=== PATIENT | female | born 1960 | race Caucasian/White ===

== ENCOUNTER 2024-07-18 07:37 | Day surgery (SDC) | payer BC, OTHER ==
[~2024-07-18 07:37] MED LIST: Albuterol 0.083% 2.5 MG/3 ML Neb Soln NEB PRN; HYDROmorphone 1 MG/ML Syringe IVPUSH PRN; Metoclopramide 10 MG/2 ML SDV IVPUSH PRN; Morphine 2 MG/ML SYRINGE IVPUSH PRN; Naloxone 0.4 MG/ML SDV IVPUSH PRN; Ondansetron 4 MG/2 ML SDV IVPUSH PRN; Phenylephrine HCl In 0.9% NaCl 1 MG/10 ML Syringe IVPUSH PRN; Scopalamine 1mg/3day Transdermal Patch TOP ONE; fentaNYL 50 MCG/ML SDV IVPUSH PRN
[2024-07-18 08:02] LABS: HEMATOCRIT 44.1 % (37.0-47.0); HEMOGLOBIN 14.8 g/dL (12.0-16.0); MEAN CORPUSCULAR HEMOGLOBIN 31.2 pg (28.0-32.0); MEAN CORPUSCULAR HGB CONC 33.6 g/dL (32.0-36.0); MEAN PLATELET VOLUME 9.6 fL (9.4-12.3); PLATELET COUNT,PLT 234 K/uL (150-400); RED BLOOD CELL COUNT 4.74 M/uL (4.10-5.30); WHITE BLOOD CELL COUNT,WBC 10.08 K/uL (3.9-11.3)
[2024-07-18] MEDS: Lactated Ringers 1,000 ML IV SCH (08:02)
[2024-07-18] MEDS ORDERED: Ketorolac 30 MG/ML SDV ONE (08:57)
[2024-07-18] MEDS ORDERED: Propofol 200 MG/20 ML SDV ONE ×3 (08:57→09:03)
[2024-07-18] MEDS ORDERED: Lidocaine 2% 5 ML SDV ONE (08:57)
[2024-07-18] MEDS ORDERED: fentaNYL 100 MCG/2 ML SDV ONE (08:57)
[2024-07-18] MEDS ORDERED: Lidocaine 2% 11 ML Jelly Filled Syringe ONE (08:57)
[2024-07-18] MEDS ORDERED: Ondansetron 4 MG/2 ML SDV ONE (08:57)
[2024-07-18] MEDS ORDERED: Dexamethasone 4 MG/ML 5 ML MDV ONE (08:57)
== END 2024-07-18 11:20 | disposition home or self-care (01) ==
LOC: MW.SDS 07:37
PROVIDERS: ATTEND Obstetrics & Gynecology
DX: N84.0 Polyp of corpus uteri (principal); E03.9 Hypothyroidism, unspecified; Z79.890 Hormone replacement therapy; Z79.899 Other long term (current) drug therapy
CPT/HCPCS: 36415; 58558; 85027; A9270; J1100; J2003; J2405; J2704; J3010; J7120; 00952; J1885